=== PATIENT | female | born 1985 | race Caucasian/White ===

== ENCOUNTER 2025-03-07 12:28 | Outpatient (REF) | payer BC, SELFPAY ==
[2025-03-07 20:39] LABS: Iron 80 ug/dL (50-170); Total Iron Binding Capacity 329 ug/dL (250-450); Transferrin Sat 24 % (15-50)
[2025-03-07 20:54] LABS: ALT 43 U/L (14-59); AST 20 U/L (15-37); Albumin 4.0 g/dL (3.4-5.0); Alkaline Phosphatase 42 U/L (46-116); Bilirubin, Total 0.5 mg/dL (0.2-1.0); Ferritin 64 ng/mL (8-252); Total Protein 7.4 g/dL (6.4-8.2)
[2025-03-07 21:10] LABS: Bilirubin, Direct 0.1 mg/dL (0.0-0.2); GGT 28 U/L (5-55)
[2025-03-08 19:08] LABS: HBs Antibody, Qual Positive (See Note); HBs Antibody, Quant 52.5 mIU/mL (See Note); Hepatitis C Ab w Rflx HCV PCR Negative (Negative)
[2025-03-11 09:55] LABS: Alpha 1 Antitrypsin,Serum 147 mg/dL (90-200)
== END 2025-03-07 12:29 | disposition home or self-care (01) ==
LOC: NCHCN 12:28
PROVIDERS: Visit Provider Family Medicine
DX: R74.01 Elevation of levels of liver transaminase levels (principal)
CPT/HCPCS: 80076; 82390; 86704; 86706; 86803; 87340; 82103; 82728; 82977; 83540; 83550; 86038; 86255